=== PATIENT | female | born 1965 | race Asian ===

== ENCOUNTER 2019-11-05 05:56 | Day surgery (SDC) | payer SELFPAY ==
[2019-11-04 14:30] VITALS: BMI 19.3
[2019-11-05] MEDS ORDERED: POVIDONE-IODINE 5% OPHTHALMIC PREP 30 ML SOLUTION ONE (07:11)
[2019-11-05] MEDS ORDERED: LIDOCAINE 1%/EPI 1:100000 (20 ML MULTI DOSE VIAL) ONE (07:11)
[2019-11-05] MEDS ORDERED: ERYTHROMYCIN 0.5% OPHTHALMIC OINTMENT 3.5 GM TUBE ONE (07:11)
[2019-11-05] MEDS ORDERED: TETRACAINE 0.5% OPHTH SOLN 2 ML BOTTLE ONE (07:11)
[2019-11-05] MEDS ORDERED: GLYCOPYRROLATE 0.2 MG/1 ML VIAL ONE (07:18)
[2019-11-05] MEDS ORDERED: MIDAZOLAM HCL 2 MG/2 ML SINGLE DOSE VIAL ONE ×2 (07:18)
[2019-11-05] MEDS ORDERED: PROPOFOL 20 ML ONE ×2 (07:18)
[2019-11-05] MEDS ORDERED: ONDANSETRON 4 MG/2 ML VIAL IVPUSH PRN (09:32)
[2019-11-05] MEDS ORDERED: oxyCODONE HCL 5 MG TABLET PO PRN (09:32)
[2019-11-05] MEDS ORDERED: LACTATED RINGERS SOLUTION 1,000 ML IV SCH (09:45)
--- NOTE | 2019-11-05 11:36 | OP ---
DATE OF OPERATION: 11/05/2019 PREOPERATIVE DIAGNOSIS: Dermatochalasis bilateral upper lids. POSTOPERATIVE DIAGNOSIS: Dermatochalasis bilateral upper lids with a rudimentary lid crease temporally. PROCEDURE: blepharoplasty bilateral upper lids. SURGEON: Fatimah Mason MD ANESTHESIA: Local with sedation. COMPLICATIONS: None. ESTIMATED BLOOD LOSS: 1-2 mL. OPERATIVE REPORT: Patient brought to the operating room. Placed on the operating room table. Vital signs were monitored by anesthesia. Patient's [place] lid crease was identified, and there was an area of whitish, blasting contract miner pigmentation of the skin in the area of the lid crease in both upper eyelids, which was shown to the patient preoperatively. Lid was everted demonstrating a tarsal height of approximately 7 to 7.5 mm and then the lid crease incision was marked at 7 to 7.5 mm on the external surface beneath the tarsus and relatively concordant with the patient's [place] central lid crease. This was tapered nasally and temporally in a parallel design and then a small amount of skin was pinched approximately 3 mm in both upper lids in order to create a superior ellipse without lash eversion, and this was marked as well tapering superiorly both nasally and temporally. Intravenous sedation was administered. Time-out was performed and then about 1-2 mL was injected into each eyelid for anesthetic underneath the dermis of the marked ellipses of 2% Xylocaine, 1:100,000 epinephrine. Gentle massage was applied for hemostasis. The patient was prepped and draped in the usual sterile fashion exposing both eyes. The lid crease was now incised symmetrically with a 15 blade through the skin only and then the superior edge of the ellipse was incised as well. A small amount of cautery was used when needed. The skin was then elevated with [place] scissors temporally and then with a [place] needle across the lid and then again with a [place] scissor nasally at the end of the ellipse in incision. Again, hemostasis was achieved as needed with minimal cautery. The orbicularis was now opened, and the septum was opened with a combination of [place] needle and [place] scissor to avoid the levator, and central fat was reflected superiorly, and minimal sculpting, if any, was performed centrally in order to prevent deformity. The orbicularis was opened nasally, and a small amount of sculpting was performed nasally in the nasal fat pocket just for smoothness of contour. Small amount of fat excised. Antibiotic irrigation was used and then the wounds were closed nasally, centrally, and temporally with 3 interrupted 5-0 Vicryl sutures grabbing skin and grabbing the advanced edge of the levator and then skin of the upper edge of the inches, and these were tied, nasally, centrally, and temporally creating a lid crease across the eyelid. After this, the wounds themselves were closed with a running 6-0 nylon suture with plastic technique, and any dog ears were examined. This completed the blepharoplasty, and the patient was allowed to wake up and open her eyes, and both eyes opened well. The patient had erythromycin ointment placed on the sutures and was taken to the recovery room in stable condition. FATIMAH MASON M.D. [id number]
[2019-11-05 12:01] VITALS: TEMP 98.8
[2019-11-05 12:05] VITALS: BP 100/60; PULSE 79
== END 2019-11-05 11:30 | disposition home or self-care (01) ==
LOC: FASU 05:56
PROVIDERS: ATTEND Ophthalmology
PROC: 08SN0ZZ Reposition Right Upper Eyelid, Open Approach (ICD-10-PCS; 2019-11-05)
PROC: 08SP0ZZ Reposition Left Upper Eyelid, Open Approach (ICD-10-PCS; principal; 2019-11-05 08:16)
DX: H02.831 Dermatochalasis of right upper eyelid (principal); H02.834 Dermatochalasis of left upper eyelid; H02.89 Other specified disorders of eyelid
CPT/HCPCS: 94760

== ENCOUNTER 2021-11-02 06:21 | Day surgery (SDC) | payer SELFPAY ==
[2021-10-28 12:12] VITALS: BMI 19.3
[2021-11-02] MEDS ORDERED: ceFAZolin SODIUM 1 GM VIAL ONE ×2 (07:15→07:52)
[2021-11-02] MEDS ORDERED: BUPIVACAINE HCL 50 ML ONE (07:16)
[2021-11-02] MEDS ORDERED: TETRACAINE 0.5% OPHTH SOLN 2 ML BOTTLE ONE (07:16)
[2021-11-02] MEDS ORDERED: POVIDONE-IODINE 5% OPHTHALMIC PREP 30 ML SOLUTION ONE (07:16)
[2021-11-02] MEDS ORDERED: ERYTHROMYCIN 0.5% OPHTHALMIC OINTMENT 3.5 GM TUBE ONE (07:16)
[2021-11-02] MEDS ORDERED: LIDOCAINE 1%/EPI 1:100000 (20 ML MULTI DOSE VIAL) ONE (07:16)
[2021-11-02] MEDS ORDERED: MIDAZOLAM HCL 2 MG/2 ML SINGLE DOSE VIAL ONE (07:43)
[2021-11-02] MEDS ORDERED: PROPOFOL 20 ML ONE ×3 (07:50)
[2021-11-02] MEDS ORDERED: KETOROLAC TROMETHAMINE 30 MG/1 ML VIAL ONE (07:52)
[2021-11-02] MEDS ORDERED: DEXAMETHASONE SOD PHOSPHATE 4 MG/1 ML VIAL ONE (07:52)
[2021-11-02] MEDS ORDERED: ONDANSETRON 4 MG/2 ML VIAL ONE (07:52)
[2021-11-02] MEDS ORDERED: ONDANSETRON 4 MG/2 ML VIAL IVPUSH PRN (09:47)
[2021-11-02] MEDS ORDERED: oxyCODONE HCL 5 MG TABLET PO PRN ×2 (09:47)
[2021-11-02 11:20] VITALS: BP 92/60; PULSE 63; TEMP 97.7
== END 2021-11-02 11:20 | disposition home or self-care (01) ==
LOC: FASU 06:21
PROVIDERS: ATTEND Ophthalmology
PROC: 08SN0ZZ Reposition Right Upper Eyelid, Open Approach (ICD-10-PCS; 2021-11-02)
PROC: 08SP0ZZ Reposition Left Upper Eyelid, Open Approach (ICD-10-PCS; principal; 2021-11-02 07:30)
DX: H02.831 Dermatochalasis of right upper eyelid (principal); H02.834 Dermatochalasis of left upper eyelid
CPT/HCPCS: 94760